=== PATIENT | female | born 1995 | race Two or more races ===

== ENCOUNTER 2024-02-09 00:13 | Emergency (ER) | payer MEDICAID, OTHER ==
[~2024-02-09] VITALS: Ht 160 cm; Wt 70.0 kg
[2024-02-09] MEDS: LIDOCAINE 1% 10 ML VIAL SQ ONE (00:58)
[2024-02-09] MEDS: PERTUSS(ACELL),DIPH,TET/PF 0.5 ML SYRINGE [ADULT] IM. ONE (00:58)
[2024-02-09] MEDS ORDERED: CEPH-558 PO (01:13)
[2024-02-09 01:30] VITALS: BP 125/73; PULSE 74; RESP 16; TEMP 98.3
== END 2024-02-09 02:15 | disposition home or self-care (01) ==
LOC: EMS 00:15
DX: S60.352A Superficial foreign body of left thumb, initial encounter (principal); F17.210 Nicotine dependence, cigarettes, uncomplicated; Z98.890 Other specified postprocedural states; X58.XXXA Exposure to other specified factors, initial encounter; Y93.89 Activity, other specified; Y92.89 Other specified places as the place of occurrence of the external cause; Y99.8 Other external cause status
CPT/HCPCS: 99285; 10120; 90715; 90471; J3490